=== PATIENT | female | born 1985 | race Native Hawaiian/Other Pacific Islander ===

== ENCOUNTER 2016-10-29 09:55 | Emergency (ER) | payer OTHER ==
--- NOTE | 2016-10-29 14:27 | ED NURSING NOTES ---
Clinical Report - Nurses [facility] [address] [place] [address] 10/29/2016 9:56 Patient: ESTEBAN SINGLETON TRIAGE Acuity: LEVEL 4. Chief Complaint: ABDOMINAL CRAMPS and VAGINAL BLEEDING. Alert. No acute distress. SEPSIS SCREEN: Sepsis Screen. Negative (no infection suspected/documented). --10:39 Luisa Kent R.N. 10:32 10/29/16. BP: 124/75. HR: 85. RR: 20. O2 saturation: 98% on room air. Temp: 97.8 F (oral). Pain level now: 10/31. --10:39 Luisa Kent R.N. Weight: 113.3 kg stated. Height/Length: 68 inches Per Patient. BMI: 38. --10:38 Luisa Kent R.N. Medications MetFORMIN HCl Oral (Tablet 1000 mg). --10:35 Luisa Kent R.N. Lantus Subcutaneous. --10:35 Luisa Kent R.N. Medication/allergy information source: the patient. --10:39 Luisa Kent R.N. Allergies No Known Drug Allergy. --10:35 Luisa Kent R.N. History Arrived by private vehicle. Historian: patient. Accompanied by family. Primary physician ([facility]). This started yesterday. ( Pt reports she had a positive urine test at [facility] in August. She states she thinks she is approx 12 weeks . Pt had a baby 5 months ago. Pt states yesterday she had blood on her toilet paper when she wiped, and passed one clot. She denies bleeding today, and states "I just want to make sure it's not a miscarriage.). 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 PAST MEDICAL HX: Immunizations: up-to-date. OB history: G 4; P 2; Ab 1. SOCIAL HX: Former smoker, end date 2015. No alcohol use or drug use. FALL RISK ASSESSMENT: Fall risk assessment completed. No fall risk identified. NUTRITIONAL RISK ASSESSMENT: The nutritional risk assessment revealed no deficiencies. FUNCTIONAL ASSESSMENT: Functional assessment: no impairments noted. LEARNING NEEDS ASSESSMENT: The learning needs assessment revealed no barriers. SKIN INTEGRITY ASSESSMENT: Skin integrity risk assessment completed. No skin integrity risk identified. --10:39 Luisa Kent R.N. PROBLEMS: Hyperglycemia. Atypical Chest Pain. Threatened . Diabetes Mellitus. . Demise. Spontaneous (Miscarriage). LNMP - Last Normal Menstrual Period. . --10:35 Luisa Kent R.N. ADDITIONAL SURGERIES: C section . . --10:35 Luisa Kent R.N. Assessment GENERAL / NEURO / PSYCH: Alert. Oriented X 4. Appears in no acute distress. Patient appears calm and cooperative. RESPIRATORY: Respirations not labored. CVS: Capillary refill less than 2 seconds. GI / : Abdomen soft and nontender. SKIN: Mucous membranes are pink. Skin is warm and dry. --10:39 Luisa Kent R.N. Interventions ID band on patient. To treatment room. --10:39 Luisa Kent R.N. PHYSICAL ASSESSMENT 10:40 10/29/16. Ambulatory to room. GENERAL / NEURO / PSYCH: Alert. Oriented X 4. Appears in no acute distress. HEENT: Mucous membranes are pink. RESPIRATORY: Respirations not labored. CVS: Capillary refill less than 2 seconds. GI / : Abdomen soft and nontender. No vaginal bleeding. SKIN: Skin is warm and dry. --10:40 Luisa Kent R.N. NURSING PROGRESS NOTES 10:40 10/29/2016 Site #1 started via IV in the right forearm with an 20g angiocath, with aseptic technique and good blood return; one attempt. Blood drawn: rainbow set. Labeled in the presence of the patient. Saline lock flushed with 10 mL saline. --10:40 Luisa Kent R.N. 10:40 10/29/16. Patient gowned. Reassurance given. Two patient identifiers checked. Call light placed in reach. Side rails up x 2. Bed placed in lowest position. Brakes of bed on. Patient ready for evaluation- chart flagged and ED physician notified. --10:40 Luisa Kent R.N. 10:57 10/29/16. Checked patient name and birthdate: patient confirmed. Instructions provided to collect clean catch urine and patient verbalized understanding. Clean catch urine collected with return of yellow-colored clear urine; sample sent to lab for urinalysis. Specimen labeled in the presence of the patient. --10:57 Luisa Kent R.N. PELVIC EXAM: Pelvic exam performed by ED physician. Assisted by one tech. Preparation: pelvic tray and culture medium. Procedure: speculum exam. Total time of assist / procedure: 15 minutes. --13:00 Yoselin Sheets. DISPOSITION / DISCHARGE 14:43 10/29/16. Condition at departure: improved. The goals identified in the patient's plan of care were met. No learning barriers present. Discharge instructions provided and reviewed with the patient. Reviewed warnings. Reviewed medication(s). Treatments reviewed. Reviewed referral to a circulation crew leader for followup (OBGYN). Patient verbalized understanding. Written instructions provided in French. The patient was discharged by the physician. She was discharged home and accompanied by family. She left the Emergency Department ambulatory and via private vehicle. Family member driving. FALL RISK ASSESSMENT: Fall risk assessment completed. No fall risk identified. --14:43 Carlos Young R.N. 14:42 10/29/16. BP: 118/71. HR: 71. RR: 14. O2 saturation: 100% on room air. Temp: 97.9 F (oral). --14:43 Carlos Young R.N. 14:43 10/29/16. Pain level now: 08/03. --14:43 Carlos Young R.N. 14:43 10/29/16. Departure time: 14:43. --14:43 Carlos Young R.N. Locked/Released at 10/29/2016 14:48 by Carlos Young R.N.
--- NOTE | 2016-10-29 14:27 | ED NURSING NOTES ---
Clinical Report - Nurses [facility] [address] [place] [address] 10/29/2016 9:56 Patient: ESTEBAN SINGLETON TRIAGE Acuity: LEVEL 4. Chief Complaint: ABDOMINAL CRAMPS and VAGINAL BLEEDING. Alert. No acute distress. SEPSIS SCREEN: Sepsis Screen. Negative (no infection suspected/documented). --10:39 Luisa Kent R.N. 10:32 10/29/16. BP: 124/75. HR: 85. RR: 20. O2 saturation: 98% on room air. Temp: 97.8 F (oral). Pain level now: 10/31. --10:39 Luisa Kent R.N. Weight: 113.3 kg stated. Height/Length: 68 inches Per Patient. BMI: 38. --10:38 Luisa Kent R.N. Medications MetFORMIN HCl Oral (Tablet 1000 mg). --10:35 Luisa Kent R.N. Lantus Subcutaneous. --10:35 Luisa Kent R.N. Medication/allergy information source: the patient. --10:39 Luisa Kent R.N. Allergies No Known Drug Allergy. --10:35 Luisa Kent R.N. History Arrived by private vehicle. Historian: patient. Accompanied by family. Primary physician ([facility]). This started yesterday. ( Pt reports she had a positive urine test at [facility] in August. She states she thinks she is approx 12 weeks . Pt had a baby 5 months ago. Pt states yesterday she had blood on her toilet paper when she wiped, and passed one clot. She denies bleeding today, and states "I just want to make sure it's not a miscarriage.). 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 PAST MEDICAL HX: Immunizations: up-to-date. OB history: G 4; P 2; Ab 1. SOCIAL HX: Former smoker, end date 2015. No alcohol use or drug use. FALL RISK ASSESSMENT: Fall risk assessment completed. No fall risk identified. NUTRITIONAL RISK ASSESSMENT: The nutritional risk assessment revealed no deficiencies. FUNCTIONAL ASSESSMENT: Functional assessment: no impairments noted. LEARNING NEEDS ASSESSMENT: The learning needs assessment revealed no barriers. SKIN INTEGRITY ASSESSMENT: Skin integrity risk assessment completed. No skin integrity risk identified. --10:39 Luisa Kent R.N. PROBLEMS: Hyperglycemia. Atypical Chest Pain. Threatened . Diabetes Mellitus. . Demise. Spontaneous (Miscarriage). LNMP - Last Normal Menstrual Period. . --10:35 Luisa Kent R.N. ADDITIONAL SURGERIES: C section . . --10:35 Luisa Kent R.N. Assessment GENERAL / NEURO / PSYCH: Alert. Oriented X 4. Appears in no acute distress. Patient appears calm and cooperative. RESPIRATORY: Respirations not labored. CVS: Capillary refill less than 2 seconds. GI / : Abdomen soft and nontender. SKIN: Mucous membranes are pink. Skin is warm and dry. --10:39 Luisa Kent R.N. Interventions ID band on patient. To treatment room. --10:39 Luisa Kent R.N. PHYSICAL ASSESSMENT 10:40 10/29/16. Ambulatory to room. GENERAL / NEURO / PSYCH: Alert. Oriented X 4. Appears in no acute distress. HEENT: Mucous membranes are pink. RESPIRATORY: Respirations not labored. CVS: Capillary refill less than 2 seconds. GI / : Abdomen soft and nontender. No vaginal bleeding. SKIN: Skin is warm and dry. --10:40 Luisa Kent R.N. NURSING PROGRESS NOTES 10:40 10/29/2016 Site #1 started via IV in the right forearm with an 20g angiocath, with aseptic technique and good blood return; one attempt. Blood drawn: rainbow set. Labeled in the presence of the patient. Saline lock flushed with 10 mL saline. --10:40 Luisa Kent R.N. 10:40 10/29/16. Patient gowned. Reassurance given. Two patient identifiers checked. Call light placed in reach. Side rails up x 2. Bed placed in lowest position. Brakes of bed on. Patient ready for evaluation- chart flagged and ED physician notified. --10:40 Luisa Kent R.N. 10:57 10/29/16. Checked patient name and birthdate: patient confirmed. Instructions provided to collect clean catch urine and patient verbalized understanding. Clean catch urine collected with return of yellow-colored clear urine; sample sent to lab for urinalysis. Specimen labeled in the presence of the patient. --10:57 Luisa Kent R.N. PELVIC EXAM: Pelvic exam performed by ED physician. Assisted by one tech. Preparation: pelvic tray and culture medium. Procedure: speculum exam. Total time of assist / procedure: 15 minutes. --13:00 Yoselin Sheets. DISPOSITION / DISCHARGE 14:43 10/29/16. Condition at departure: improved. The goals identified in the patient's plan of care were met. No learning barriers present. Discharge instructions provided and reviewed with the patient. Reviewed warnings. Reviewed medication(s). Treatments reviewed. Reviewed referral to a shared services and outsourcing manager for followup (OBGYN). Patient verbalized understanding. Written instructions provided in [place] [employer]. The patient was discharged by the physician. She was discharged home and accompanied by family. She left the Emergency Department ambulatory and via private vehicle. Family member driving. FALL RISK ASSESSMENT: Fall risk assessment completed. No fall risk identified. --14:43 Carlos Young R.N. 14:42 10/29/16. BP: 118/71. HR: 71. RR: 14. O2 saturation: 100% on room air. Temp: 97.9 F (oral). --14:43 Carlos Young R.N. 14:43 10/29/16. Pain level now: 08/03. --14:43 Carlos Young R.N. 14:43 10/29/16. Departure time: 14:43. --14:43 Carlos Young R.N. Locked/Released at 10/29/2016 14:48 by Carlos Young R.N.
--- NOTE | 2016-10-29 14:27 | ED ORDER SUMMARY ---
..... Patient: ESTEBAN SINGLETON OrderSheet [facility] VisitID: [id number] [place] [address] 31y, F Registration Date/Time: 10/29/2016 ORDER SHEET Weight: 113.3 kg (stated) Allergies: No Known Drug Allergy GENERAL ORDERS: GC/Chlamydia (Cervix) (cervix) Urgent (10:10/29/2016 Rossana MENDIOLA) (Ack 10:32 Macrina) (12:42 MWinterer R.N.) Wet Prep (Cervix) (cervix) Urgent (10:10/29/2016 Rossana MENDIOLA) (Ack 10:32 Macrina) (12:42 MWinterer R.N.) CBC w Diff Urgent (10:10/29/2016 Rossana MENDIOLA) (Ack 10:32 Macrina) (10:45 MWinterer R.N.) CMP Urgent (10:10/29/2016 Rossana MENDIOLA) (Ack 10:32 Macrina) (10:45 MWinterer R.N.) UA-Culture if indicated Urgent (10:10/29/2016 Rossana MENDIOLA) (Ack 10:32 Macrina) (10:57 MWinterer R.N.) PT with INR Urgent (10:10/29/2016 Rossana MENDIOLA) (Ack 10:32 Macrina) (10:45 MWinterer R.N.) PTT Urgent (10:10/29/2016 Rossana MENDIOLA) (Ack 10:32 Macrina) (10:45 MWinterer R.N.) Amylase Urgent (10:10/29/2016 Rossana MENDIOLA) (Ack 10:32 Macrina) (10:45 MWinterer R.N.) Lipase Urgent (10:10/29/2016 Rossana MENDIOLA) (Ack 10:32 Macrina) (10:45 MWinterer R.N.) Serum Quantitative Urgent (10:10/29/2016 Rossana MENDIOLA) (Ack 10:32 Macrina) (10:45 MWinterer R.N.) Type & Rh Urgent (10:32 10/29/2016 Rossana MENDIOLA) (Ack 10:32 Macrina) (10:45 MWinterer R.N.) Pelvic Exam Setup (10:32 10/29/2016 Rossana MENDIOLA) (10:45 MWinterer R.N.) US OB 1st Trimester w Transvag (16 weeks ago) Urgent (12:49 10/29/2016 Rossana MENDIOLA) (Ack 12:54 Macrina) MEDICATION ORDERS: IV FLUIDS: IV Saline Lock (10:32 10/29/2016 Rossana MENDIOLA) (10:45 MWinteryazmin R.N.) ORDER SHEET NOTES: [Electronically signed by Carlos Young R.N. (14:48 10/29/2016)] [Electronically signed by Ritchie Nugent MD (08:04 10/31/2016)] [Electronically locked/signed by Carlos Young R.N. (14:48 10/29/2016)]
--- NOTE | 2016-10-29 14:27 | ED ORDER SUMMARY ---
..... Patient: ESTEBAN SINGLETON OrderSheet [facility] VisitID: [id number] [place] [address] 31y, F Registration Date/Time: 10/29/2016 ORDER SHEET Weight: 113.3 kg (stated) Allergies: No Known Drug Allergy GENERAL ORDERS: GC/Chlamydia (Cervix) (cervix) Urgent (10:10/29/2016 Rossana MENDIOLA) (Ack 10:32 Macrina) (12:42 MWinterer R.N.) Wet Prep (Cervix) (cervix) Urgent (10:10/29/2016 Rossana MENDIOLA) (Ack 10:32 Macrina) (12:42 MWinterer R.N.) CBC w Diff Urgent (10:10/29/2016 Rossana MENDIOLA) (Ack 10:32 Macrina) (10:45 MWinterer R.N.) CMP Urgent (10:10/29/2016 Rossana MENDIOLA) (Ack 10:32 Macrina) (10:45 MWinterer R.N.) UA-Culture if indicated Urgent (10:10/29/2016 Rossana MENDIOLA) (Ack 10:32 Macrina) (10:57 MWinterer R.N.) PT with INR Urgent (10:10/29/2016 Rossana MENDIOLA) (Ack 10:32 Macrina) (10:45 MWinterer R.N.) PTT Urgent (10:10/29/2016 Rossana MENDIOLA) (Ack 10:32 Macrina) (10:45 MWinterer R.N.) Amylase Urgent (10:10/29/2016 Rossana MENDIOLA) (Ack 10:32 Macrina) (10:45 MWinterer R.N.) Lipase Urgent (10:10/29/2016 Rossana MENDIOLA) (Ack 10:32 Macrina) (10:45 MWinterer R.N.) Serum Quantitative Urgent (10:10/29/2016 Rossana MENDIOLA) (Ack 10:32 Macrina) (10:45 MWinterer R.N.) Type & Rh Urgent (10:32 10/29/2016 Rossana MENDIOLA) (Ack 10:32 Macrina) (10:45 MWinterer R.N.) Pelvic Exam Setup (10:32 10/29/2016 Rossana MENDIOLA) (10:45 MWinterer R.N.) US OB 1st Trimester w Transvag (16 weeks ago) Urgent (12:49 10/29/2016 Rossana MENDIOLA) (Ack 12:54 Macrina) MEDICATION ORDERS: IV FLUIDS: IV Saline Lock (10:32 10/29/2016 Rossana MENDIOLA) (10:45 MWinteryazmin R.N.) ORDER SHEET NOTES: [Electronically signed by Carlos Young R.N. (14:48 10/29/2016)] [Electronically signed by Ritchie Nugent MD (08:04 10/31/2016)] [Electronically locked/signed by Carlos Young R.N. (14:48 10/29/2016)]
--- NOTE | 2016-10-29 14:27 | ED CLINICAL REPORT ---
Clinical Report - Physicians/Mid Levels [facility] [address] [place] [address] 10/29/2016 9:56 Patient: ESTEBAN SINGLETON Time Seen: 10:30. Arrived- By private vehicle. Historian- patient. HISTORY OF PRESENT ILLNESS Chief Complaint: VAGINAL BLEEDING. This started yesterday and now gone. It was abrupt in onset and has been intermittent. The symptoms are described as mild. The patient has had mild, crampy pelvic pain. No pain with urination, urinary frequency, urgency of urination or hematuria. Currently . In 1st trimester. Uncertain of dates. G 4. P 2. Ab 1. REVIEW OF SYSTEMS No chills, fever, sweats, calf pain or chest pain. No cough, difficulty breathing, pedal edema, palpitations or black stools. No bloody stools, constipation, diarrhea, nausea or vomiting. All systems otherwise negative, except as recorded above. PAST HISTORY Problems: Hyperglycemia. Atypical Chest Pain. UTI - Urinary Tract Infection. Diabetes Mellitus. OB History. . Demise. Spontaneous (Miscarriage). . Additional Surgeries: . Medications: Lantus Subcutaneous. MetFORMIN HCl Oral (Tablet 1000 mg). Allergies: No Known Drug Allergy. SOCIAL HISTORY Former smoker, end date 2015. No alcohol use or drug use. FAMILY HISTORY Denies family medical history. ADDITIONAL NOTES The nursing notes have been reviewed. PHYSICAL EXAM Vital Signs: 10/29/2016 10:32 BP: 124/75. HR: 85. RR: 20. O2 saturation: 98%. Temp: 97.8 F. Pain level now: 5/10. Have been reviewed. Appearance: Alert. She is morbidly obese. ENT: Pharynx normal. Neck: Neck supple. CVS: Heart sounds normal. Respiratory: No respiratory distress. Breath sounds normal. Abdomen: Soft and nontender. Bowel sounds normal. No organomegaly. No mass. Obese. Back: Normal external inspection. No CVA tenderness. : No vaginal bleeding. No cervical dilation. Enlarged uterus- 10 wk size. No tenderness with movement of the cervix. Skin: Skin warm and dry. Normal skin color. Normal skin turgor. Extremities: Extremities nontender. No calf tenderness. No lower extremity edema. LABS, X-RAYS, AND EKG Pelvic Sonogram: IMPRESSION: 1. Single living intrauterine with gestational age of 9 weeks 1 day and estimated due date of 06/02/2017. 2. A very small perigestational hemorrhage, likely implantation bleed. 3. Closed cervix. The study was interpreted by the radiologist and contemporaneously by me. Laboratory Tests: UA-Culture if indicated: (NONA: 10/29/2016 10:45) ( [facility] [place] 10/29/2016 11:24) Final results Test Result Flag Units (Reference) URINE COLOR YELLOW URINE APPEARANCE CLEAR URINE GLUCOSE 3+ (NEGATIVE) URINE BILIRUBIN NEGATIVE (NEGATIVE) URINE KETONE NEGATIVE (NEGATIVE) URINE SPECIFIC GRAVITY 1.025 (1.010-1.030) URINE PH 5.5 (5.0-8.0) URINE PROTEIN TRACE (NEGATIVE) URINE UROBILINOGEN 0.2 EU/dL (0.2-1.0) URINE NITRITE POSITIVE (NEGATIVE) URINE BLOOD 2+ (NEGATIVE) URINE LEUK ESTERASE NEGATIVE (NEGATIVE) URINE RBC NONE SEEN rbc/hpf (0-1) URINE WBC 1-3 wbc/hpf (0-1) URINE EPITHELIAL CELLS 0-1 EPI/hpf (0-5) URINE BACTERIA MODERATE (2+ TO 3+) (NONE SEEN) URINE COMMENT CULTURE INDICATED URINE CULTURES ARE SET-UP BASED ON THE FOLLOWING CRITERIA:POSITIVE NITRITEPOSITIVE LEUKOCYTE ESTERASEGREATER THAN 10 WHITE BLOOD CELLSMODERATE (2+) OR GREATER BACTERIA CBC w Diff: (NONA: 10/29/2016 10:40) ( [facility] [place] 10/29/2016 11:28) Final results Test Result Flag Units (Reference) WHITE BLOOD COUNT 10.8 K/uL (4.5-11.5) RED BLOOD COUNT 5.10 M/uL (4.00-5.20) HEMOGLOBIN 14.2 gm/dL (12.0-16.0) HEMATOCRIT 42.5 % (36.0-46.0) MEAN CELL VOLUME 83 fL (80-100) MEAN CORPUSCULAR HGB 28 pg (26-34) MEAN CORPUSCULAR HGB CONC 33 g/dL (31-37) RED CELL DISTRIBUTION WIDTH 15.8 H % (11.6-14.8) PLATELET COUNT 296 K/uL (150-400) NEUTROPHIL % 74.7 % (50-75) LYMPH % 15.2 L % (25-40) MONO % 7.5 % (3-14) EOSINOPHIL % 2.5 % (0-4) BASOPHIL % 0.1 % (0-2) PT with INR: (NONA: 10/29/2016 10:40) ( [facility] [place] 11:20) Final results Test Result Flag Units (Reference) INR 0.9 (0.8-1.2) Low Intensity Therapy: INR 1.5-2.0 PT range 18.5-23.1Mod.Intensity Therapy: INR 2.0-3.0 PT range 23.1-31.5High Intensity Therapy: INR 2.5-3.5 PT range 27.4-35.5High Intensity Therapy 2: INR 3.0-4.0 PT range 31.5-39.3 APTT 31 SECONDS (24-34) CMP: (NONA: 10/29/2016 10:40) ( [facility] 10/29/2016 11:51) Final results Test Result Flag Units (Reference) GLUCOSE 246 H mg/dL (70-110) BUN 13 mg/dL (7-18) CREATININE 0.8 mg/dL (0.6-1.3) Estimated GFR >60 mL/min Estimated GFR- >60 mL/min Note: Persistent reduction over 3 months in eGFR<60 mL/min/1.73 m2 defines CKD. Patients with eGFR values>=60 mL/min/1.73 m2 may also have CKD if evidence ofpersistent proteinuria. Additional information may be foundat www.kidney.org. SODIUM 138 mmol/L (136-145) POTASSIUM 3.9 mmol/L (3.5-5.1) CHLORIDE 103 mmol/L (98-107) CARBON DIOXIDE 19 L mmol/L (21-32) CALCIUM 8.6 mg/dL (8.5-10.1) TOTAL PROTEIN 7.5 g/dL (6.4-8.2) ALBUMIN 3.0 L g/dL (3.3-5.0) BILIRUBIN, TOTAL 0.2 mg/dL (0.0-1.0) ALKALINE PHOSPHATASE 62 U/L (46-116) AST (SGOT) 7 L U/L (15-37) ALT (SGPT) 16 U/L (12-78) LIPASE 207 U/L (73-393) AMYLASE 59 U/L (25-115) BETA HCG, QUANTITATIVE 04258 mIU/mL REFERENCE RANGE:Adult Males: <2 mIU/mLNon- Females: <6 mIU/mL Females:Approximate Approximate hCGGestational Age Range (mIU/mL) 0-1 week 0-501-2 weeks 40-3002-3 weeks 100-06500-4 weeks 500-04015-7 months 5,000-200,0002-3 months 10,000-100,0002nd trimester 3,000-50,0003rd trimester 1,000-50,000 Wet Prep: (NONA: 10/29/2016 12:50) ( [facility] 10/29/2016 13:22) Final results SPECIMEN DESCRIPTION: CERVIX Test Result Flag Units (Reference) WET MOUNT CLUE CELLS:: MODERATE * EPITHELIAL CELLS: MODERATE -- SOURCE?: CERVIX WHITE BLOOD CELLS: MANY POLY TRICHOMONAS:: NONE -- YEAST:: NONE Type & Rh: (NONA: 10/29/2016 10:40) ( [facility] [place] 10/29/2016 11:55) Final results Test Result Flag Units (Reference) PATIENT BLOOD TYPE O Positive . PROGRESS AND PROCEDURES Discussed case with on-call health care provider, (Dr. Stewart - [facility] at - He knows the patient well. He provided care for her with her last that ended with a section 5 months ago. He says that she is very noncompliant regarding her diabetes. He says additionally that she has a poor social setting.). Reviewed test results and need for additional work-up. Agreed upon treatment plan and need for patient follow-up. Health care provider will see patient in office. Patient/family counseled. Old medical records reviewed. Disposition: Discharged. Condition: stable. CLINICAL IMPRESSION Threatened . Acute urinary tract infection. Possible first trimester subchorionic hemorrhage. INSTRUCTIONS Drink plenty of fluids. (you were to follow up in one week at the [facility] with Dr. Stewart. He insists that in order for you to be seen you must arrive at the clinic with a record of your finger stick glucose measurements taken 4 times daily both before breakfast and one hour after breakfast as well as before dinner and one hour after dinner each day. He also wants you to bring your glucometer. Call the office today to make the appointment. The contact information there is: Dr. Murray Stewart Ob[facility]ne[facility] [address] [id number] [phone]). Warnings: Further evaluation is necessary. GENERAL WARNINGS: Return or contact your physician immediately if your condition worsens or changes unexpectedly, if not improving as expected, or if other problems arise. Your Current Medications: CONTINUE TAKING THE FOLLOWING MEDICATIONS: Lantus Subcutaneous. MetFORMIN HCl Oral : Tablet 1000 mg. Prescription Medications: Macrobid 100 mg: Take 1 capsule orally every 12 hours for 7 days. No refills. Substitution is permissible. vitamins: Take 1 orally every day. Dispense thirty (30). No refill. Understanding of the discharge instructions verbalized by patient. (Electronically signed by Ritchie Nugent MD 10/31/2016 8:04) Addenda for ESTEBAN SINGLETON VisitID: [id number] Date: 10/29/2016 10/30/2016 12:54 Called in RX for Flagyl 500mg #14 One PO BID for 7 days by Kyle Guadalupe. Patient aware to picker and packer RX (Electronically signed by Carlos Young R.N. - 10/30/2016 12:54)
--- NOTE | 2016-10-29 14:27 | ED CLINICAL REPORT ---
Clinical Report - Physicians/Mid Levels [facility] [address] [place] [address] 10/29/2016 9:56 Patient: ESTEBAN SINGLETON Time Seen: 10:30. Arrived- By private vehicle. Historian- patient. HISTORY OF PRESENT ILLNESS Chief Complaint: VAGINAL BLEEDING. This started yesterday and now gone. It was abrupt in onset and has been intermittent. The symptoms are described as mild. The patient has had mild, crampy pelvic pain. No pain with urination, urinary frequency, urgency of urination or hematuria. Currently . In 1st trimester. Uncertain of dates. G 4. P 2. Ab 1. REVIEW OF SYSTEMS No chills, fever, sweats, calf pain or chest pain. No cough, difficulty breathing, pedal edema, palpitations or black stools. No bloody stools, constipation, diarrhea, nausea or vomiting. All systems otherwise negative, except as recorded above. PAST HISTORY Problems: Hyperglycemia. Atypical Chest Pain. UTI - Urinary Tract Infection. Diabetes Mellitus. OB History. . Demise. Spontaneous (Miscarriage). . Additional Surgeries: . Medications: Lantus Subcutaneous. MetFORMIN HCl Oral (Tablet 1000 mg). Allergies: No Known Drug Allergy. SOCIAL HISTORY Former smoker, end date 2015. No alcohol use or drug use. FAMILY HISTORY Denies family medical history. ADDITIONAL NOTES The nursing notes have been reviewed. PHYSICAL EXAM Vital Signs: 10/29/2016 10:32 BP: 124/75. HR: 85. RR: 20. O2 saturation: 98%. Temp: 97.8 F. Pain level now: 5/10. Have been reviewed. Appearance: Alert. She is morbidly obese. ENT: Pharynx normal. Neck: Neck supple. CVS: Heart sounds normal. Respiratory: No respiratory distress. Breath sounds normal. Abdomen: Soft and nontender. Bowel sounds normal. No organomegaly. No mass. Obese. Back: Normal external inspection. No CVA tenderness. : No vaginal bleeding. No cervical dilation. Enlarged uterus- 10 wk size. No tenderness with movement of the cervix. Skin: Skin warm and dry. Normal skin color. Normal skin turgor. Extremities: Extremities nontender. No calf tenderness. No lower extremity edema. LABS, X-RAYS, AND EKG Pelvic Sonogram: IMPRESSION: 1. Single living intrauterine with gestational age of 9 weeks 1 day and estimated due date of 06/02/2017. 2. A very small perigestational hemorrhage, likely implantation bleed. 3. Closed cervix. The study was interpreted by the radiologist and contemporaneously by me. Laboratory Tests: UA-Culture if indicated: (NONA: 10/29/2016 10:45) ( [facility] [place] 10/29/2016 11:24) Final results Test Result Flag Units (Reference) URINE COLOR YELLOW URINE APPEARANCE CLEAR URINE GLUCOSE 3+ (NEGATIVE) URINE BILIRUBIN NEGATIVE (NEGATIVE) URINE KETONE NEGATIVE (NEGATIVE) URINE SPECIFIC GRAVITY 1.025 (1.010-1.030) URINE PH 5.5 (5.0-8.0) URINE PROTEIN TRACE (NEGATIVE) URINE UROBILINOGEN 0.2 EU/dL (0.2-1.0) URINE NITRITE POSITIVE (NEGATIVE) URINE BLOOD 2+ (NEGATIVE) URINE LEUK ESTERASE NEGATIVE (NEGATIVE) URINE RBC NONE SEEN rbc/hpf (0-1) URINE WBC 1-3 wbc/hpf (0-1) URINE EPITHELIAL CELLS 0-1 EPI/hpf (0-5) URINE BACTERIA MODERATE (2+ TO 3+) (NONE SEEN) URINE COMMENT CULTURE INDICATED URINE CULTURES ARE SET-UP BASED ON THE FOLLOWING CRITERIA:POSITIVE NITRITEPOSITIVE LEUKOCYTE ESTERASEGREATER THAN 10 WHITE BLOOD CELLSMODERATE (2+) OR GREATER BACTERIA CBC w Diff: (NONA: 10/29/2016 10:40) ( [facility] [place] 10/29/2016 11:28) Final results Test Result Flag Units (Reference) WHITE BLOOD COUNT 10.8 K/uL (4.5-11.5) RED BLOOD COUNT 5.10 M/uL (4.00-5.20) HEMOGLOBIN 14.2 gm/dL (12.0-16.0) HEMATOCRIT 42.5 % (36.0-46.0) MEAN CELL VOLUME 83 fL (80-100) MEAN CORPUSCULAR HGB 28 pg (26-34) MEAN CORPUSCULAR HGB CONC 33 g/dL (31-37) RED CELL DISTRIBUTION WIDTH 15.8 H % (11.6-14.8) PLATELET COUNT 296 K/uL (150-400) NEUTROPHIL % 74.7 % (50-75) LYMPH % 15.2 L % (25-40) MONO % 7.5 % (3-14) EOSINOPHIL % 2.5 % (0-4) BASOPHIL % 0.1 % (0-2) PT with INR: (NONA: 10/29/2016 10:40) ( [facility] [place] 11:20) Final results Test Result Flag Units (Reference) INR 0.9 (0.8-1.2) Low Intensity Therapy: INR 1.5-2.0 PT range 18.5-23.1Mod.Intensity Therapy: INR 2.0-3.0 PT range 23.1-31.5High Intensity Therapy: INR 2.5-3.5 PT range 27.4-35.5High Intensity Therapy 2: INR 3.0-4.0 PT range 31.5-39.3 APTT 31 SECONDS (24-34) CMP: (NONA: 10/29/2016 10:40) ( [facility] 10/29/2016 11:51) Final results Test Result Flag Units (Reference) GLUCOSE 246 H mg/dL (70-110) BUN 13 mg/dL (7-18) CREATININE 0.8 mg/dL (0.6-1.3) Estimated GFR >60 mL/min Estimated GFR- >60 mL/min Note: Persistent reduction over 3 months in eGFR<60 mL/min/1.73 m2 defines CKD. Patients with eGFR values>=60 mL/min/1.73 m2 may also have CKD if evidence ofpersistent proteinuria. Additional information may be foundat [email or web address]. SODIUM 138 mmol/L (136-145) POTASSIUM 3.9 mmol/L (3.5-5.1) CHLORIDE 103 mmol/L (98-107) CARBON DIOXIDE 19 L mmol/L (21-32) CALCIUM 8.6 mg/dL (8.5-10.1) TOTAL PROTEIN 7.5 g/dL (6.4-8.2) ALBUMIN 3.0 L g/dL (3.3-5.0) BILIRUBIN, TOTAL 0.2 mg/dL (0.0-1.0) ALKALINE PHOSPHATASE 62 U/L (46-116) AST (SGOT) 7 L U/L (15-37) ALT (SGPT) 16 U/L (12-78) LIPASE 207 U/L (73-393) AMYLASE 59 U/L (25-115) BETA HCG, QUANTITATIVE 31885 mIU/mL REFERENCE RANGE:Adult Males: <2 mIU/mLNon- Females: <6 mIU/mL Females:Approximate Approximate hCGGestational Age Range (mIU/mL) 0-1 week 0-501-2 weeks 40-3002-3 weeks 100-91263-4 weeks 500-72911-6 months 5,000-200,0002-3 months 10,000-100,0002nd trimester 3,000-50,0003rd trimester 1,000-50,000 Wet Prep: (NONA: 10/29/2016 12:50) ( [facility] 10/29/2016 13:22) Final results SPECIMEN DESCRIPTION: CERVIX Test Result Flag Units (Reference) WET MOUNT CLUE CELLS:: MODERATE * EPITHELIAL CELLS: MODERATE -- SOURCE?: CERVIX WHITE BLOOD CELLS: MANY POLY TRICHOMONAS:: NONE -- YEAST:: NONE Type & Rh: (NONA: 10/29/2016 10:40) ( [facility] [place] 10/29/2016 11:55) Final results Test Result Flag Units (Reference) PATIENT BLOOD TYPE O Positive . PROGRESS AND PROCEDURES Discussed case with on-call health care provider, (Dr. Stewart - [facility] at - He knows the patient well. He provided care for her with her last that ended with a section 5 months ago. He says that she is very noncompliant regarding her diabetes. He says additionally that she has a poor social setting.). Reviewed test results and need for additional work-up. Agreed upon treatment plan and need for patient follow-up. Health care provider will see patient in office. Patient/family counseled. Old medical records reviewed. Disposition: Discharged. Condition: stable. CLINICAL IMPRESSION Threatened . Acute urinary tract infection. Possible first trimester subchorionic hemorrhage. INSTRUCTIONS Drink plenty of fluids. (you were to follow up in one week at the [facility] Maternal- medicine clinic with Dr. Stewart. He insists that in order for you to be seen you must arrive at the clinic with a record of your finger stick glucose measurements taken 4 times daily both before breakfast and one hour after breakfast as well as before dinner and one hour after dinner each day. He also wants you to bring your glucometer. Call the office today to make the appointment. The contact information there is: Dr. Murray Stewart Ob[facility]ne[facility] [address] [phone]). Warnings: Further evaluation is necessary. GENERAL WARNINGS: Return or contact your physician immediately if your condition worsens or changes unexpectedly, if not improving as expected, or if other problems arise. Your Current Medications: CONTINUE TAKING THE FOLLOWING MEDICATIONS: Lantus Subcutaneous. MetFORMIN HCl Oral : Tablet 1000 mg. Prescription Medications: Macrobid 100 mg: Take 1 capsule orally every 12 hours for 7 days. No refills. Substitution is permissible. vitamins: Take 1 orally every day. Dispense thirty (30). No refill. Understanding of the discharge instructions verbalized by patient. (Electronically signed by Ritchie Nugent MD 10/31/2016 8:04) Addenda for ESTEBAN SINGLETON VisitID: [id number] Date: 10/29/2016 10/30/2016 12:54 Called in RX for Flagyl 500mg #14 One PO BID for 7 days by Kyle Guadalupe. 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 - 10/30/2016 12:54)
--- NOTE | 2016-10-29 15:05 | DIAGNOSTIC IMAGING REPORT ---
PROCEDURE: US OB 1ST TRIMESTER W/TRANSVAG INDICATION: Abnormal bleeding, early TECHNIQUE: Mullins scale, color, and spectral Doppler transabdominal and endovaginal sonographic images of the first trimester gravid uterus were obtained. COMPARISON: None during this FINDINGS: TRANSABDOMINAL SCANS: The gravid uterus is anteverted anteflexed in position and contains a fundal gestational sac with a moderate decidual response. No obvious hemorrhage. The cervix is closed. parts are identified. There is detectable cardiac activity at a rate of 180 beats per minute. Adnexa are unremarkable. TRANSVAGINAL SCANS: A pole is present with an average crown-rump length of 24 mm which corresponds to a 0-sagt-4-day gestation. Yolk sac was identified. There is detectable cardiac activity at a rate of 173 beats per minute. There is a thin curvilinear perigestational hypoechoic region measuring 3 cm in length by 8 mm in width consistent with an implantation perigestational hemorrhage. The cervix is closed and measures about 4.2 cm in length. No free pelvic fluid or suspicious adnexal mass. IMPRESSION: 1. Single living intrauterine with gestational age of 9 weeks 1 day and estimated due date of 06/02/2017. 2. A very small perigestational hemorrhage, likely implantation bleed. 3. Closed cervix.
--- NOTE | 2016-10-31 08:05 | ED MED RECONCILIATION SUMMARY ---
Patient: ESTEBAN SINGLETON Medication Reconciliation Report [facility] VisitID: [id number] [address] [place] [address] 31y, F Registration Date/Time: 10/29/2016 Weight: 113.3 kg Height/Length: 68 in. BMI: 38.0 ALLERGIES: No Known Drug Allergy The patient's Home Medications are listed below: CONTINUE TAKING THE FOLLOWING MEDICATIONS: Lantus Subcutaneous MetFORMIN HCl Oral (1000 mg) The source(s) of the original Home Medication information: patient The following Medications were given to the patient in the Emergency Department: None. The following Medications were prescribed to the patient: Macrobid 100 mg: Take 1 capsule orally every 12 hours for 7 days. No refills. Substitution is permissible. -- Ritchie Nugent MD vitamins: Take 1 orally every day. Dispense thirty (30). No refill. -- Ritchie Nugent MD
--- NOTE | 2016-10-31 08:05 | ED MED RECONCILIATION SUMMARY ---
Patient: ESTEBAN SINGLETON Medication Reconciliation Report [facility] VisitID: [id number] [address] [place] [address] 31y, F Registration Date/Time: 10/29/2016 Weight: 113.3 kg Height/Length: 68 in. BMI: 38.0 ALLERGIES: No Known Drug Allergy The patient's Home Medications are listed below: CONTINUE TAKING THE FOLLOWING MEDICATIONS: Lantus Subcutaneous MetFORMIN HCl Oral (1000 mg) The source(s) of the original Home Medication information: patient The following Medications were given to the patient in the Emergency Department: None. The following Medications were prescribed to the patient: Macrobid 100 mg: Take 1 capsule orally every 12 hours for 7 days. No refills. Substitution is permissible. -- Ritchie Nugent MD vitamins: Take 1 orally every day. Dispense thirty (30). No refill. -- Ritchie Nugent MD
--- NOTE | 2016-10-31 08:05 | ED DISCHARGE INSTRUCTIONS ---
Patient: ESTEBAN SINGLETON General Instructions [facility] VisitID: [id number] [place] [address] 31y, F Registration Date/Time: 10/29/2016 Acute urinary tract infection. INSTRUCTIONS Drink plenty of fluids. (you were to follow up in one week at the [facility] Maternal- medicine clinic with Dr. Stewart. He insists that in order for you to be seen you must arrive at the clinic with a record of your finger stick glucose measurements taken 4 times daily both before breakfast and one hour after breakfast as well as before dinner and one hour after dinner each day. He also wants you to bring your glucometer. Call the office today to make the appointment. The contact information there is: Dr. Murray Stewart Ob[facility] [address] [phone]). Warnings: Further evaluation is necessary. GENERAL WARNINGS: Return or contact your physician immediately if your condition worsens or changes unexpectedly, if not improving as expected, or if other problems arise. Your Current Medications: CONTINUE TAKING THE FOLLOWING MEDICATIONS: Lantus Subcutaneous. MetFORMIN HCl Oral : Tablet 1000 mg. Prescription Medications: Macrobid 100 mg: Take 1 capsule orally every 12 hours for 7 days. No refills. Substitution is permissible. vitamins: Take 1 orally every day. Dispense thirty (30). No refill. Understanding of the discharge instructions verbalized by patient. ADDITIONAL INFORMATION Possible Miscarriage (Threatened ) During early (first three months), it is not uncommon to have a small amount of bleeding. This can be entirely normal. But heavy bleeding or severe cramping can be an early sign of miscarriage. A miscarriage means unexpected loss of your . In about half of patients with bleeding or cramping during early , these symptoms will stop and the will continue normally. However, half of the time a miscarriage will occur. A miscarriage may occur due to various causes. These include a problem with the babys chromosomes (genes that carry the information needed for life) or with fertilization or implantation that didnt happen correctly. In most cases no cause can be found. Be reassured that this is not the result of anything that you did wrong, and it will not interfere with your ability to become in the future. Home Care: To improve the chance of keeping this , you should do the following: Rest in bed until the pain and bleeding stop. Do not have sexual intercourse for the next 3 weeks. Use sanitary napkins instead of tampons. Do not douche. Follow-Up: Make an appointment with your doctor within the next week, or as directed by our staff. Note: If you had an ultrasound, it will be reviewed by a specialist. You will be notified of any new findings that may affect your care. Get Prompt Medical Attention if any of the following occur: Vaginal bleeding or pain for more than three days Heavy bleeding (soaking one new pad an hour over three hours) Fever of 100.4F (38C) or higher, or as directed by your healthcare provider Increasing lower abdominal pain Weakness, dizziness, or fainting Passage of anything that resembles tissue: pink or grayish membrane or solid material (save the tissue in a clean container and bring to the doctor) Bladder Infection,Female (Adult) A bladder infection ("cystitis" or "UTI") usually causes a constant urge to urinate and a burning when passing urine. Urine may be cloudy, smelly or dark. There may be pain in the lower abdomen. A bladder infection occurs when bacteria from the vaginal area enter the bladder opening (urethra). This can occur from sexual intercourse, wearing tight clothing, dehydration and other factors. Home Care: Drink lots of fluids (at least 6-8 glasses a day, unless you must restrict fluids for other medical reasons). This will force the medicine into your urinary system and flush the bacteria out of your body. Avoid sexual intercourse until your symptoms are gone. Avoid caffeine, alcohol and spicy foods. These can irritate the bladder. A bladder infection is treated with antibiotics. You may also be given Pyridium (generic = phenazopyridine) to reduce the burning sensation. This medicine will cause your urine to become a bright orange color. The orange urine may stain clothing. You may wear a pad or panty-liner to protect clothing. Preventing Future Infections: Always wipe from front to back after a bowel movement. Keep the genital area clean and dry. Drink plenty of fluids each day to avoid dehydration. Both sexual partners should wash before intercourse. Urinate right after intercourse to flush out the bladder. Wear cotton underwear and cotton-lined panty hose; avoid tight-fitting pants. If you are on control pills and are having frequent bladder infections, discuss with your doctor. Follow Up: Return to this facility or see your doctor if ALL symptoms are not gone after three days of treatment. Get Prompt Medical Attention if any of the following occur: Fever of 100.4F (38C) or higher, or as directed by your healthcare provider No improvement by the third day of treatment Increasing back or abdominal pain Repeated vomiting; unable to keep medicine down Weakness, dizziness or fainting Vaginal discharge Pain, redness or swelling in the labia (outer vaginal area) Nitrofurantoin, Nitrofurantoin, Macrocrystalline Oral capsule What is this medicine? NITROFURANTOIN (maurizioalexia fowler joni ELISE toyn) is an antibiotic. It is used to treat urinary tract infections. How should I use this medicine? Take this medicine by mouth with a glass of water. Follow the directions on the prescription label. Take this medicine with food or milk. Take your doses at regular intervals. Do not take your medicine more often than directed. Do not stop taking except on your doctor's advice. Talk to your neon sign maker regarding the use of this medicine in children. While this drug may be prescribed for selected conditions, precautions do apply. What side effects may I notice from receiving this medicine? Side effects that you should report to your doctor or health inspector health care facilities as soon as possible: allergic reactions like skin rash or hives, swelling of the face, lips, or tongue chest pain cough difficulty breathing dizziness, drowsiness fever or infection joint aches or pains pale or blue-tinted skin redness, blistering, peeling or loosening of the skin, including inside the mouth tingling, burning, pain, or numbness in hands or feet unusual bleeding or bruising unusually weak or tired yellowing of eyes or skin Side effects that usually do not require medical attention (report to your doctor or health inspector health care facilities if they continue or are bothersome): dark urine diarrhea headache loss of appetite nausea or vomiting temporary hair loss What may interact with this medicine? antacids containing magnesium trisilicate probenecid quinolone antibiotics like ciprofloxacin, lomefloxacin, norfloxacin and ofloxacin sulfinpyrazone What if I miss a dose? If you miss a dose, take it as soon as you can. If it is almost time for your next dose, take only that dose. Do not take double or extra doses. Where should I keep my medicine? Keep out of the reach of children. Store at room temperature between 15 and 30 degrees C (59 and 86 degrees F). Protect from light. Throw away any unused medicine after the expiration date. What should I tell my health care provider before I take this medicine? They need to know if you have any of these conditions: anemia diabetes dncextp-1-soxalewrl dehydrogenase deficiency kidney disease liver disease lung disease other chronic illness an unusual or allergic reaction to nitrofurantoin, other antibiotics, other medicines, foods, dyes or preservatives or trying to get breast-feeding What should I watch for while using this medicine? Tell your doctor or health inspector health care facilities if your symptoms do not improve or if you get new symptoms. Drink several glasses of water a day. If you are taking this medicine for a long time, visit your doctor for regular checks on your progress. If you are diabetic, you may get a false positive result for sugar in your urine with certain brands of urine tests. Check with your doctor. You have been given the following additional information: Possible Miscarriage (Threatened ) Bladder Infection, Female (Adult) Nitrofurantoin, Nitrofurantoin, Macrocrystalline Oral capsule (Electronically signed by Ritchie Nugent MD 10/31/2016 8:04)
--- NOTE | 2016-10-31 08:05 | ED DISCHARGE INSTRUCTIONS ---
Patient: ESTEBAN SINGLETON General Instructions [facility] VisitID: [id number] [place] [address] 31y, F Registration Date/Time: 10/29/2016 Acute urinary tract infection. INSTRUCTIONS Drink plenty of fluids. (you were to follow up in one week at the [facility] with Dr. Stewart. He insists that in order for you to be seen you must arrive at the clinic with a record of your finger stick glucose measurements taken 4 times daily both before breakfast and one hour after breakfast as well as before dinner and one hour after dinner each day. He also wants you to bring your glucometer. Call the office today to make the appointment. The contact information there is: Dr. Murray Stewart Ob[facility] [address] [phone]). Warnings: Further evaluation is necessary. GENERAL WARNINGS: Return or contact your physician immediately if your condition worsens or changes unexpectedly, if not improving as expected, or if other problems arise. Your Current Medications: CONTINUE TAKING THE FOLLOWING MEDICATIONS: Lantus Subcutaneous. MetFORMIN HCl Oral : Tablet 1000 mg. Prescription Medications: Macrobid 100 mg: Take 1 capsule orally every 12 hours for 7 days. No refills. Substitution is permissible. vitamins: Take 1 orally every day. Dispense thirty (30). No refill. Understanding of the discharge instructions verbalized by patient. ADDITIONAL INFORMATION Possible Miscarriage (Threatened ) During early (first three months), it is not uncommon to have a small amount of bleeding. This can be entirely normal. But heavy bleeding or severe cramping can be an early sign of miscarriage. A miscarriage means unexpected loss of your . In about half of patients with bleeding or cramping during early , these symptoms will stop and the will continue normally. However, half of the time a miscarriage will occur. A miscarriage may occur due to various causes. These include a problem with the babys chromosomes (genes that carry the information needed for life) or with fertilization or implantation that didnt happen correctly. In most cases no cause can be found. Be reassured that this is not the result of anything that you did wrong, and it will not interfere with your ability to become in the future. Home Care: To improve the chance of keeping this , you should do the following: Rest in bed until the pain and bleeding stop. Do not have sexual intercourse for the next 3 weeks. Use sanitary napkins instead of tampons. Do not douche. Follow-Up: Make an appointment with your doctor within the next week, or as directed by our staff. Note: If you had an ultrasound, it will be reviewed by a specialist. You will be notified of any new findings that may affect your care. Get Prompt Medical Attention if any of the following occur: Vaginal bleeding or pain for more than three days Heavy bleeding (soaking one new pad an hour over three hours) Fever of 100.4F (38C) or higher, or as directed by your healthcare provider Increasing lower abdominal pain Weakness, dizziness, or fainting Passage of anything that resembles tissue: pink or grayish membrane or solid material (save the tissue in a clean container and bring to the doctor) Bladder Infection,Female (Adult) A bladder infection ("cystitis" or "UTI") usually causes a constant urge to urinate and a burning when passing urine. Urine may be cloudy, smelly or dark. There may be pain in the lower abdomen. A bladder infection occurs when bacteria from the vaginal area enter the bladder opening (urethra). This can occur from sexual intercourse, wearing tight clothing, dehydration and other factors. Home Care: Drink lots of fluids (at least 6-8 glasses a day, unless you must restrict fluids for other medical reasons). This will force the medicine into your urinary system and flush the bacteria out of your body. Avoid sexual intercourse until your symptoms are gone. Avoid caffeine, alcohol and spicy foods. These can irritate the bladder. A bladder infection is treated with antibiotics. You may also be given Pyridium (generic = phenazopyridine) to reduce the burning sensation. This medicine will cause your urine to become a bright orange color. The orange urine may stain clothing. You may wear a pad or panty-liner to protect clothing. Preventing Future Infections: Always wipe from front to back after a bowel movement. Keep the genital area clean and dry. Drink plenty of fluids each day to avoid dehydration. Both sexual partners should wash before intercourse. Urinate right after intercourse to flush out the bladder. Wear cotton underwear and cotton-lined panty hose; avoid tight-fitting pants. If you are on control pills and are having frequent bladder infections, discuss with your doctor. Follow Up: Return to this facility or see your doctor if ALL symptoms are not gone after three days of treatment. Get Prompt Medical Attention if any of the following occur: Fever of 100.4F (38C) or higher, or as directed by your healthcare provider No improvement by the third day of treatment Increasing back or abdominal pain Repeated vomiting; unable to keep medicine down Weakness, dizziness or fainting Vaginal discharge Pain, redness or swelling in the labia (outer vaginal area) Nitrofurantoin, Nitrofurantoin, Macrocrystalline Oral capsule What is this medicine? NITROFURANTOIN (maurizioalexia fowler joni ELISE toyn) is an antibiotic. It is used to treat urinary tract infections. How should I use this medicine? Take this medicine by mouth with a glass of water. Follow the directions on the prescription label. Take this medicine with food or milk. Take your doses at regular intervals. Do not take your medicine more often than directed. Do not stop taking except on your doctor's advice. Talk to your resident care spec regarding the use of this medicine in children. While this drug may be prescribed for selected conditions, precautions do apply. What side effects may I notice from receiving this medicine? Side effects that you should report to your doctor or health acute care nurse as soon as possible: allergic reactions like skin rash or hives, swelling of the face, lips, or tongue chest pain cough difficulty breathing dizziness, drowsiness fever or infection joint aches or pains pale or blue-tinted skin redness, blistering, peeling or loosening of the skin, including inside the mouth tingling, burning, pain, or numbness in hands or feet unusual bleeding or bruising unusually weak or tired yellowing of eyes or skin Side effects that usually do not require medical attention (report to your doctor or health acute care nurse if they continue or are bothersome): dark urine diarrhea headache loss of appetite nausea or vomiting temporary hair loss What may interact with this medicine? antacids containing magnesium trisilicate probenecid quinolone antibiotics like ciprofloxacin, lomefloxacin, norfloxacin and ofloxacin sulfinpyrazone What if I miss a dose? If you miss a dose, take it as soon as you can. If it is almost time for your next dose, take only that dose. Do not take double or extra doses. Where should I keep my medicine? Keep out of the reach of children. Store at room temperature between 15 and 30 degrees C (59 and 86 degrees F). Protect from light. Throw away any unused medicine after the expiration date. What should I tell my health care provider before I take this medicine? They need to know if you have any of these conditions: anemia diabetes [id number] dehydrogenase deficiency kidney disease liver disease lung disease other chronic illness an unusual or allergic reaction to nitrofurantoin, other antibiotics, other medicines, foods, dyes or preservatives or trying to get breast-feeding What should I watch for while using this medicine? Tell your doctor or health acute care nurse if your symptoms do not improve or if you get new symptoms. Drink several glasses of water a day. If you are taking this medicine for a long time, visit your doctor for regular checks on your progress. If you are diabetic, you may get a false positive result for sugar in your urine with certain brands of urine tests. Check with your doctor. You have been given the following additional information: Possible Miscarriage (Threatened ) Bladder Infection, Female (Adult) Nitrofurantoin, Nitrofurantoin, Macrocrystalline Oral capsule (Electronically signed by Ritchie Nugent MD 10/31/2016 8:04)
--- NOTE | 2016-10-31 08:05 | ED MAR SUMMARY ---
..... Medication Administration Record [facility] [address] [place], [place] [id number] Patient: ESTEBAN SINGLETON Visit ID: [id number] 31y, F Weight: 113.3 kg Height/Length: 68 in BMI: 38 ALLERGIES: No Known Drug Allergy
--- NOTE | 2016-10-31 08:05 | ED MAR SUMMARY ---
..... Medication Administration Record [facility] [address] [place], [place] [id number] Patient: ESTEBAN SINGLETON Visit ID: [id number] 31y, F Weight: 113.3 kg Height/Length: 68 in BMI: 38 ALLERGIES: No Known Drug Allergy
== END 2016-10-29 14:43 | disposition home or self-care (01) ==
LOC: ED SRH 09:55
DX: O20.0 Threatened abortion (principal); O23.41 Unspecified infection of urinary tract in pregnancy, first trimester; O98.811 Other maternal infectious and parasitic diseases complicating pregnancy, first trimester; B96.20 Unspecified Escherichia coli [E. coli] as the cause of diseases classified elsewhere; Z3A.09 9 weeks gestation of pregnancy; E11.9 Type 2 diabetes mellitus without complications; Z79.84 Long term (current) use of oral hypoglycemic drugs; Z79.4 Long term (current) use of insulin; Z87.891 Personal history of nicotine dependence
CPT/HCPCS: 90001; 90004; 90100; 90148; 90155; 90195; 90197; 90469; 91227; 91228; 92235; 92530; 94001; 94060; 95059